=== PATIENT | female | born 1955 | race Caucasian/White ===

== ENCOUNTER → 2016-10-28 | Outpatient (CLI) | payer BC ==
[~2016-10-28] MED LIST: AMBIEN CR PO; CELEBREX PO; COZAAR PO; PRILOSEC PO; PROPRANOLOL PO; SYNTHROID PO; VICODIN 5/500 T1 TAB PO
--- NOTE | ~2016-10-28 | CT55 ---
[facility] A Service of [facility] RADIOLOGY TEXT RESULTS PATIENT: JOHN PRIETO LOCATION: [facility] : 53 UNIT #: [id number] AGE: [address]: SOHAN MCCARTNEY SEX: F ORDER DR: [id number] [facility] [address] [place], [place] [address] [id number] O MR#: [id number] Acc #: [id number] NAME: JOHN PRIETO : 1955 SEX: F STUDY DATE/TIME: 10/28/2016 15:04 UNIT: [facility] ROOM: STUDY DESCRIPTION: CT Chest W Con Attending Physician: Sohan Mccartney Aprn Ordering Physician: Physician Non-Staff Primary Care Physician: Barby Mariano M.D. MEDICAL IMAGING REPORT This report is preliminary unless electronic signature is present EXAM CT chest with contrast HISTORY Preoperative testing at [facility] revealed abnormal chest x-ray. COMPARISON PA and lateral chest, 10/26/2016 TECHNIQUE Axial images performed through the chest following IV contrast. Sagittal and coronal reconstructed images reviewed at a workstation. This CT exam was performed with one or more of the following radiation dose reduction techniques: automatic exposure control, adjustment of mA and/or kV according to patient size, and iterative reconstruction. FINDINGS There is a small amount of lingular atelectasis. No bronchiectasis or central obstructing mass lesions identified. No effusions. There is a calcified granuloma abutting the pleural surface left lower lobe. Trachea and bronchi unremarkable. Heart, aorta and pulmonary vessels unremarkable. There are calcified mediastinal and hilar nodes compatible with prior granulomatous disease. Small hiatal hernia. Upper abdomen remarkable for bilobed left renal cortical cyst. The adrenal glands are unremarkable. The thoracic spine, thoracic inlet appears normal. Patient is post cholecystectomy. IMPRESSION 1. Lingular atelectasis without bronchiectasis or central obstructing mass. 2. Old granulomatous disease. [facility] A Service of [facility] RADIOLOGY TEXT RESULTS PATIENT: JOHN PRIETO LOCATION: [facility] : 53 UNIT #: [id number] AGE: [address]: SOHAN MCCARTNEY SEX: F ORDER DR: 3. Small hiatal hernia. Dictated by... aKvon Jones M.D. THIS IS AN ELECTRONICALLY VERIFIED REPORT Kavon Jones M.D. at 10/31/2016 4:56 PM Apryl TD: 10/31/2016 11:11 JOB #: [id number] MEDICAL IMAGING REPORT Page 1 of 1 COPY
[2016-10-28 16:31] LABS: POC - CREATININE 0.81 mg/dL (0.44-1.03); POC - GFR >60.0 mL/min (>60)
== END | disposition home or self-care (01) ==
LOC: CCAT 13:50
PROVIDERS: Nurse Practitioner Family
DX: Z01.818 Encounter for other preprocedural examination (principal); R93.8 Abnormal findings on diagnostic imaging of other specified body structures; J98.11 Atelectasis; K44.9 Diaphragmatic hernia without obstruction or gangrene
CPT/HCPCS: 71260; 82565; Q9967

== ENCOUNTER → 2017-03-27 | Outpatient (CLI) | payer BC ==
--- NOTE | ~2017-03-27 | MY29 ---
[facility] A Service of [facility] RADIOLOGY TEXT RESULTS PATIENT: JOHN PRIETO LOCATION: [facility] : 53 UNIT #: [id number] AGE: [address]: Barby Mariano MD SEX: F ORDER DR: [id number] [place], [place] [address] [id number] O MR#: [id number] Acc #: [id number] NAME: JOHN PRIETO : 1955 SEX: F STUDY DATE/TIME: 03/27/2017 12:33 UNIT: [facility] ROOM: STUDY DESCRIPTION: [facility] SCREENING W/ CAD BILAT Attending Physician: Barby Mariano M.D. Referring Physician: Barby Mariano M.D. Ordering Physician: Barby Mariano M.D. Primary Care Physician: Barby Mariano M.D. MEDICAL IMAGING REPORT This report is preliminary unless electronic signature is present EXAM Bilateral digital screening mammogram with CAD 03/27/2017 HISTORY No personal or family history of breast cancer or current complaints. COMPARISON Bilateral screening mammogram 06/05/2015, 05/23/2013. FINDINGS CC and MLO views were obtained of each breast utilizing digital technique and reviewed with an FDA-approved CAD device. Scattered fibroglandular densities are present bilaterally. No new or suspicious nodule, architectural distortion or clustered microcalcification is seen. No abnormal skin thickening or nipple retraction. IMPRESSION BIRADS 1. Negative screening mammogram. Routine screening mammogram is recommended in 1 year. Patients over the age of 40 are entered into a reminder system with target due date for the next mammogram. A result letter will also be sent to the patient. BIRADS: 1 Negative Dictated by... Rona Cool M.D. THIS IS AN ELECTRONICALLY VERIFIED REPORT [facility] A Service of [facility] RADIOLOGY TEXT RESULTS PATIENT: JOHN PRIETO LOCATION: [facility] : 53 UNIT #: [id number] AGE: [address]: Barby Mariano MD SEX: F ORDER DR: Rona Cool M.D. at 03/28/2017 9:50 AM RIK/preet TD: 03/28/2017 08:43 JOB #: [id number] MEDICAL IMAGING REPORT Page 1 of 1 COPY
== END | disposition home or self-care (01) ==
LOC: CWCC 12:12
DX: Z12.31 Encounter for screening mammogram for malignant neoplasm of breast (principal)
CPT/HCPCS: G0202